=== PATIENT | male | born 1955 | race African-American/Black ===

== ENCOUNTER 2020-04-03 07:49 | Emergency (ER) | payer OTHER ==
[2020-04-03 07:53] VITALS: BP 136/76; PULSE 97; TEMP 99; BMI 33.5
--- NOTE | 2020-04-03 08:01 | PDOC ---
History of Present Illness - General Stated Complaint: SORE THROAT Time Seen by Provider: 04/03/20 07:51 History Source: Patient Exam Limitations: No Limitations - History of Present Illness Initial Comments: 04/03/20 07:57 64 y/o male presents to the ED with c/o sore throat since last night and took motrin this morning s/s continued and took his temp (100.4) no meds taken and decided to come to the ED. No other complaints. retired and denies any covid exposure Is this a multiple visit Asthma Patient?: No Timing/Duration: reports: yesterday Severity: reports: mild Possible Cause: Yes: no prior episodes Associated Symptoms: reports: fever/chills, sore throat Past History - Travel History Traveled outside of the country in the last 30 days: No Close contact w/someone who was outside of country & ill: No - Medical History Allergies/Adverse Reactions: Allergies Allergy/AdvReac Type Severity Reaction Status Date / Time NUTS Allergy Severe ANAPHYLAXIS Uncoded 09/17/13 11:00 Home Medications: Ambulatory Orders No Home Medications 0 dose .ROUTE UTDICT 09/27/12 levoFLOXacin [Levaquin -] 500 mg PO DAILY #7 tablet 09/17/13 Azithromycin [Zithromax 250mg Tablets -] 250 mg PO UTDICT #6 tab 04/03/20 Asthma: Yes - Psycho-Social/Smoking History Smoking Status: Yes Smoking History: Never smoked Number of Cigarettes Smoked Daily: 20 Information on smoking cessation initiated: No - Substance Abuse Hx (Audit-C & DAST Scrn) How often the patient has a drink containing alcohol: Never Score: In Men: 4 or > Positive; In Women: 3 or > Positive: 0 Screen Result (Pos requires Nsg. Audit-10AR): Negative In the last yr the pt used illegal drug/Rx for NonMed reason: No Score: Yes response is considered Positive: 0 Screen Result (Positive result requires Nsg. DAST-10): Negative Review of Systems - Review of Systems Able to Perform ROS?: Yes Constitutional: Yes: Fever HEENTM: Yes: Throat Pain Respiratory: No: Symptoms reported Cardiac (ROS): No: Symptoms Reported ABD/GI: No: Symptoms Reported : No: Symptoms Reported Musculoskeletal: No: Symptoms Reported Integumentary: No: Symptoms Reported Neurological: No: Symptoms reported Endocrine: No: Symptoms Reported Hematologic/Lymphatic: No: Symptoms Reported *Physical Exam - Vital Signs Last Vital Signs Temp Pulse Resp BP Pulse Ox 99.0 F 97 H 17 136/76 98 04/03/20 07:51 04/03/20 07:51 04/03/20 07:51 04/03/20 07:51 04/03/20 07:51 - Physical Exam General Appearance: Yes: Nourished, Appropriately Dressed. No: Apparent Distress HEENT: positive: Pharyngeal Erythema. negative: Pale Conjunctivae, Tonsillar Exudate, Tonsillar Erythema Neck: positive: Supple. negative: Lymphadenopathy (R), Lymphadenopathy (L) Respiratory/Chest: positive: Lungs Clear, Normal Breath Sounds. negative: Respiratory Distress, Accessory Muscle Use Cardiovascular: positive: Regular Rhythm, Regular Rate. negative: Murmur Gastrointestinal/Abdominal: positive: Distended Extremity: positive: Normal Inspection Integumentary: positive: Normal Color, Warm, Moist Neurologic: positive: Motor Strength 5/5 (ambulatory) Medical Decision Making - Medical Decision Making 04/03/20 08:03 CC: sore throat since yesterday now with fever Exam: mild erythema to post palate, low grade temp Plan: tylenol and rapid strep 04/03/20 11:53 strep -. Will treat with azithro for early tosillitis/undx'd strep/ and covid pneumonitis Discharge - Discharge Information Problems reviewed: Yes Clinical Impression/Diagnosis: Sore throat Condition: Good Disposition: HOME - Additional Discharge Information Prescriptions: Azithromycin [Zithromax 250mg Tablets -] 250 mg PO UTDICT #6 tab - Follow up/Referral Referrals: Lan Summers [Primary Care Provider] - - Patient Discharge Instructions Patient Printed Discharge Instructions: Sore Throat Additional Instructions: Please continue to take tylenol for fever or pain. You will be notified of rapid strep results Covid testing can be done at our other facility by calling [phone] - Post Discharge Activity
[2020-04-03] MEDS ORDERED: ACETAMINOPHEN 325 MG TABLET (FP) PO ONE (08:05)
[2020-04-03] MEDS ORDERED: ACETAMINOPHEN 325 MG TABLET (FP) ONE (08:25)
== END 2020-04-03 08:38 | disposition home or self-care (01) ==
LOC: JER 07:49
DX: R07.0 Pain in throat (principal)
CPT/HCPCS: 87070; 87880; 99283-25

== ENCOUNTER 2022-06-29 09:32 | Emergency (ER) | payer OTHER ==
[2022-06-29 09:36] VITALS: BMI 32.1
[2022-06-29] MEDS ORDERED: predniSONE 20 MG TABLET (UD) PO ONE (09:56)
[2022-06-29] MEDS ORDERED: diphenhydrAMINE HCL 25 MG CAPSULE (FP) PO ONE ×2 (09:56→10:00)
[2022-06-29] MEDS ORDERED: FAMOTIDINE 20 MG TABLET PO ONE (09:56)
[2022-06-29] MEDS ORDERED: predniSONE 20 MG TABLET (UD) ONE (10:00)
[2022-06-29] MEDS ORDERED: FAMOTIDINE 20 MG TABLET ONE (10:01)
[2022-06-29 12:33] VITALS: BP 126/85; PULSE 68; RESP 17; TEMP 97.4
== END 2022-06-29 12:57 | disposition home or self-care (01) ==
LOC: JER 09:32
DX: T78.40XA Allergy, unspecified, initial encounter (principal)
CPT/HCPCS: 99283-25

== ENCOUNTER 2023-04-19 09:16 | Emergency (ER) | payer OTHER ==
[2023-04-19 09:32] VITALS: BP 126/76; PULSE 61; RESP 16; TEMP 97.8; BMI 32.1
[2023-04-19] MEDS ORDERED: ACETAMINOPHEN 500 MG TABLET (FP) PO ONE (10:25)
[2023-04-19] MEDS ORDERED: ACETAMINOPHEN 500 MG TABLET (FP) ONE (10:31)
== END 2023-04-19 13:05 | disposition home or self-care (01) ==
LOC: JERFT 09:16
DX: M25.562 Pain in left knee (principal)
CPT/HCPCS: 73562-TC-LT-FY; 93971-TC; 99284-25

== ENCOUNTER 2023-11-30 11:51 | Emergency (ER) | payer OTHER ==
[2023-11-30 12:02] VITALS: RESP 18; TEMP 97.6; BMI 32.8
[2023-11-30] MEDS ORDERED: KETOROLAC TROMETHAMINE 15 MG/ML VIAL ONE (13:07)
[2023-11-30] MEDS: KETOROLAC TROMETHAMINE 15 MG/ML VIAL IVPUSH ONE (13:12)
[2023-11-30 13:34] LABS: BASO % 0.7 % (0-2.0); EOS % 3.1 % (0-4.5); HEMATOCRIT 47.4 % (35.4-49); HEMOGLOBIN 15.4 GM/dL (11.7-16.9); LYMPH % 22.6 % (8-40); MCH 30.6 pg (25.7-33.7); MCHC 32.5 g/dl (32.0-35.9); MEAN CELL VOLUME 94.2 fl (80-96); MONO % 6.9 % (3.8-10.2); NEUT % 66.7 % (42.8-82.8); PLATELET COUNT 180 10^3/uL (134-434); RBC 5.04 M/mm3 (4.00-5.60); RDW 12.5 % (11.9-15.9); WHITE BLOOD COUNT 7.5 K/mm3 (4.0-10.0)
[2023-11-30 13:38] LABS: PROTHROMBIN TIME (PATIENT) 11.6 SEC (9.7-13.0)
[2023-11-30 13:41] LABS: ACTIVATED PTT 35.9 SECONDS (25.2-36.5)
[2023-11-30 13:47] LABS: POTASSIUM 4.2 mmol/L (3.5-5.1)
[2023-11-30 13:51] LABS: ALBUMIN 3.1 g/dl (3.4-5.0); CALCIUM 8.8 mg/dL (8.5-10.1)
[2023-11-30 13:52] LABS: BLOOD UREA NITROGEN 13.3 mg/dL (7-18); MAGNESIUM 2.1 mg/dL (1.8-2.4)
[2023-11-30 13:55] LABS: CREATININE 1.4 mg/dL (0.55-1.3)
[2023-11-30 13:56] LABS: TOT PROT 6.6 g/dl (6.4-8.2)
[2023-11-30 13:57] LABS: BILIRUBIN,TOTAL 0.4 mg/dL (0.2-1)
[2023-11-30] MEDS ORDERED: MAG HYDROX/AL HYDROX/SIMETH 30 ML UNIT-DOSE CUP ONE (14:06)
[2023-11-30] MEDS: MAG HYDROX/AL HYDROX/SIMETH 30 ML UNIT-DOSE CUP PO ONE (14:10)
[2023-11-30 15:53] VITALS: BP 132/68; PULSE 60
== END 2023-11-30 15:54 | disposition home or self-care (01) ==
LOC: JER 11:51
PROC: 3E0333Z Introduction of Anti-inflammatory into Peripheral Vein, Percutaneous Approach (ICD-10-PCS; principal; 2023-11-30)
DX: R07.89 Other chest pain (principal)
CPT/HCPCS: 36415; 71045-TC-FY; 80053; 83735; 83880; 84484; 85025; 85610; 85730; 86850; 86900; 86901; 93005; 93010; 93971-RT; 96374; 99285-25

== ENCOUNTER 2024-01-13 06:32 | Emergency (ER) | payer OTHER ==
[2024-01-13 06:42] VITALS: BP 135/80; PULSE 67; RESP 20; TEMP 97.8; BMI 32.1
[2024-01-13] MEDS ORDERED: ACETAMINOPHEN 325 MG TABLET (FP) ONE (08:24)
[2024-01-13] MEDS: ACETAMINOPHEN 500 MG TABLET (FP) PO ONE (08:50)
[2024-01-13 08:52] LABS: BASO % 0.7 % (0-2.0); EOS % 4.9 % (0-4.5); HEMATOCRIT 45.5 % (35.4-49); HEMOGLOBIN 15.4 GM/dL (11.7-16.9); MCH 31.7 pg (25.7-33.7); MEAN CELL VOLUME 93.3 fl (80-96); MEAN PLT VOLUME 8.6 fl (7.5-11.1); MONO % 11.1 % (3.8-10.2); NEUT % 58.3 % (42.8-82.8); PLATELET COUNT 177 10^3/uL (134-434); RBC 4.87 M/mm3 (4.00-5.60); RDW 12.5 % (11.9-15.9); WHITE BLOOD COUNT 6.3 K/mm3 (4.0-10.0)
[2024-01-13 08:53] LABS: PH,URINE 5.5 (5.0-8.0); URINE APPEARANCE CLEAR; URINE BILIRUBIN NEGATIVE (NEGATIVE); URINE COLOR YELLOW; URINE GLUCOSE (UA) NEGATIVE (NEGATIVE); URINE KETONE NEGATIVE (NEGATIVE); URINE LEUK ESTERASE NEGATIVE (NEGATIVE); URINE NITRITE NEGATIVE (NEGATIVE); URINE PROTEIN NEGATIVE (NEGATIVE)
[2024-01-13 09:14] LABS: ALBUMIN 3.1 g/dl (3.4-5.0); BLOOD UREA NITROGEN 13.4 mg/dL (7-18)
[2024-01-13 09:17] LABS: CREATININE 1.2 mg/dL (0.55-1.3)
[2024-01-13 09:18] LABS: BILIRUBIN,TOTAL 0.6 mg/dL (0.2-1); TOT PROT 6.8 g/dl (6.4-8.2)
[2024-01-13] MEDS ORDERED: IBUPROFEN 400 MG TABLET (FP) PO ONE (12:28)
[2024-01-13] MEDS: IBUPROFEN 400 MG TABLET (FP) PO ONE (12:36)
== END 2024-01-13 14:15 | disposition home or self-care (01) ==
LOC: JER 06:32
DX: R10.31 Right lower quadrant pain (principal)
CPT/HCPCS: 36415; 72170-TC-FY; 73502-TC-RT-FY; 74176-TC; 80053; 81003; 85025; 87086; 99285-25

== ENCOUNTER 2025-03-28 08:11 | Emergency (ER) | payer OTHER ==
[2025-03-28 08:39] VITALS: BP 145/82; PULSE 78; RESP 18; TEMP 97.9; BMI 32.8
[2025-03-28] MEDS ORDERED: MAG HYDROX/AL HYDROX/SIMETH 30 ML UNIT-DOSE CUP ONE (09:11)
[2025-03-28] MEDS ORDERED: ACETAMINOPHEN 500 MG TABLET (FP) ONE (09:11)
[2025-03-28] MEDS ORDERED: NAPROXEN 500 MG TABLET ONE (09:11)
[2025-03-28] MEDS ORDERED: LIDOCAINE 4% PATCH TP ONE (09:11)
[2025-03-28] MEDS: MAG HYDROX/AL HYDROX/SIMETH 30 ML UNIT-DOSE CUP PO ONE (09:16)
[2025-03-28] MEDS: ACETAMINOPHEN 500 MG TABLET (FP) PO ONE (09:16)
[2025-03-28] MEDS: NAPROXEN 500 MG TABLET PO ONE (09:16)
[2025-03-28] MEDS: LIDOCAINE 4% PATCH TP ONE (09:17)
[2025-03-28] MEDS ORDERED: LIDOCAINE PATCH REMOVAL MC SCH (22:00)
== END 2025-03-28 11:26 | disposition home or self-care (01) ==
LOC: JER 08:11
DX: M25.561 Pain in right knee (principal); M25.461 Effusion, right knee; M79.661 Pain in right lower leg; M79.89 Other specified soft tissue disorders; X50.0XXA Overexertion from strenuous movement or load, initial encounter; Y93.01 Activity, walking, marching and hiking
CPT/HCPCS: 73562-TC-RT-FY; 73590-TC-RT-FY; 93971-TC; 99284-25